=== PATIENT | female | born 1980 | race Caucasian/White ===

== ENCOUNTER 2017-07-05 11:03 | Emergency (ER) | payer OTHER, BC ==
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
== END 2017-07-05 12:30 | disposition home or self-care (01) ==
LOC: LB.ED 11:03
DX: M62.830 Muscle spasm of back (principal); V43.52XA Car driver injured in collision with other type car in traffic accident, initial encounter
CPT/HCPCS: 71045; 72125; 72128; 72131; 72170; 99283; A0425; A0429